=== PATIENT | male | born 1965 | race Caucasian/White ===

== ENCOUNTER 2019-08-21 01:10 | Outpatient (CLI) | payer SELFPAY ==
[2019-08-21 10:56] LABS: CREATININE 1.16 mg/dL (0.70-1.30); Calculated LDL 165 mg/dL (<100); Cholesterol 230 mg/dL (<200); Glucose 139 mg/dL (74-106); HDL Cholesterol 44 mg/dL (40-60); Potassium 4.1 mmol/L (3.5-5.1); Triglyceride 105 mg/dL (<150)
== END 2019-08-21 01:30 ==
PROVIDERS: PCP Family Medicine; Visit Provider Family Medicine
DX: E78.5 Hyperlipidemia, unspecified (principal); I10 Essential (primary) hypertension; R73.9 Hyperglycemia, unspecified
CPT/HCPCS: 36415; 80061; 82947; 82565; 84132

== ENCOUNTER 2019-09-11 01:59 | Outpatient (CLI) | payer SELFPAY ==
[2019-09-11 07:55] LABS: Hemoglobin A1C 6.2 % (3.8-5.6)
== END 2019-09-11 02:19 ==
PROVIDERS: PCP Family Medicine; Visit Provider Family Medicine
DX: R73.9 Hyperglycemia, unspecified (principal)
CPT/HCPCS: 36415; 83036

== ENCOUNTER → 2020-12-06 01:15 | Outpatient (CLI) | payer OTHER, SELFPAY ==
--- NOTE | 2020-12-06 08:15 | DI.RAD_ITS ---
Exam(s) XR HIP RT COMPLETE AP PELVIS EXAM: XR HIP RT COMPLETE AP PELVIS CLINICAL HISTORY: rt hip and groin pain,M25.551. TECHNIQUE: 2D digital imaging was performed of the right hip. Three images were obtained. AP pelvis and lateral right hip views were obtained. COMPARISON: No exams were available for comparison FINDINGS: BONES: No acute fracture is present. No bony destructive lesion is seen. JOINTS: No dislocation present. The right hip joint is well maintained. The sacroiliac joints and sy mphysis pubis are well maintained. There are degenerative changes seen in the lower lumbar spine. SOFT TISSUE: Normal. IMPRESSION: 1. Unremarkable radiographs of the right hip. 2. Degenerative changes seen in the lower lumbar spine. DATA REPOSITORY: RADIATION DOSE DELIVERED:
== END ==
PROVIDERS: PCP Family Medicine; Visit Provider Family Medicine
DX: M25.551 Pain in right hip (principal); M47.816 Spondylosis without myelopathy or radiculopathy, lumbar region
CPT/HCPCS: 73502

== ENCOUNTER 2020-12-14 15:34 | Emergency (ER) | payer OTHER, SELFPAY ==
[2020-12-14] VITALS (24 sets, daily range): BP systolic 122–164; BP diastolic 76–136; PULSE 70–126; RESP 17–35; TEMP 36.8–37.3; O2SAT 90–95
--- NOTE | 2020-12-14 15:30 | RT.EKG_ITS ---
APPROVED REPORT Exam: Resting ECG Reason for Exam: SOB Patient Location: E HR:112 bpm ECG Measurements Heart Rate 112 AXIS MN 127 P 52 QRSd 80 QRS 31 QT 319 T 63 QTc 436 Conclusion Sinus tachycardia...rate> 99. Sinus. No STEMI. I have reviewed and interpreted ECG and agree with software generated interpretation.
[2020-12-14 16:05] LABS: Source Nasal/Nares
[2020-12-14 16:08] LABS: Abs Immature Grans 0.03 10^3/uL (0.0-0.06); Absolute Lymphocyte Count 0.51 10^3/uL (1.2-3.4); Absolute Monocyte Count 0.38 10^3/uL (0.1-0.8); Absolute Neutrophil Count 3.87 10^3/uL (1.2-6.7); HCT 40.9 % (40.0-50.0); Immature Grans % 0.6; Lymphocytes % 10.6; MCH 30.4 pg (27.0-33.0); MCHC 34.2 % (32.0-36.0); MCV 88.9 fL (80-95); MPV 10.8 fL (8.0-11.0); Monocytes % 7.9; Neutrophils % 80.9; Nucleated RBC 0 %; Platelet Count 151 10^3/uL (130-400); RDW-SD 42.5 fL; WBC 4.79 10^3/uL (4.4-10.8)
[2020-12-14 16:37] LABS: ALT 45 U/L (16-63); AST 31 U/L (15-37); Albumin 3.3 g/dL (3.4-5.0); Alkaline Phosphatase 70 U/L (46-116); Anion Gap 10.5 mmol/L (3-11); BUN 21 mg/dL (7-18); Bilirubin, Total 0.6 mg/dL (0.2-1.0); CO2 28.5 mmol/L (21.0-32.0); CREATININE 1.2 mg/dL (0.70-1.30); Calcium 8.6 mg/dL (8.5-10.1); Chloride 98 mmol/L (98-107); Glucose 188 mg/dL (74-106); Magnesium 2.1 mg/dL (1.8-2.4); Potassium 3.7 mmol/L (3.5-5.1); Sodium 137 mmol/L (136-145); Total Protein 8.1 g/dL (6.4-8.2)
[2020-12-14 16:39] LABS: Troponin I < 0.05 ng/mL (<0.06)
--- NOTE | 2020-12-14 16:45 | DI.RAD_ITS ---
Exam(s) XR PORTABLE CHEST AP EXAM: XR PORTABLE CHEST AP CLINICAL HISTORY: covid pneumonia. TECHNIQUE: 2D digital imaging was performed. COMPARISON: CR CHEST 2 VIEWS PA,LAT from 10/18/2012 FINDINGS: Heart size is upper normal. The mediastinum is not widened. Left lung is clear. Mild increased markings in the lower right lung field noted. No pleural effusio ns IMPRESSION: Mild increased markings in the lower right lung field, possibly developing infiltrate. Recommend non portable PA and lateral views when clinically possible. DATA REPOSITORY: RADIATION DOSE DELIVERED: All CT scans at this facility use at least one of these dose optimization techniques: automated exposure control; mA and/or kV adjustment per patient size (includes targeted e xams where dose is matched to clinical indication); or iterative reconstruction.
--- NOTE | 2020-12-14 16:50 | ED.GENADUL_ITS ---
Discharge Plan Disposition Patient Disposition: HOME Condition: Stable Discharge Details Clinical Impression: COVID-19 Primary Care Provider: Rohan Apodaca ED Provider: Leslie Rubio Home Meds and New Rx's Prescriptions: No Action metformin 500 mg tablet 500 mg PO BID Qty: 180 RF: 3 omeprazole 20 MG capsule,delayed release(DR/EC) 1 tab PO DAILY RF: 0 fexofenadine [Michelle Allergy] 180 MG tablet 180 mg PO DAILY RF: 0 lisinopril-hydrochlorothiazide 10-12.5 mg tablet 1 tab PO DAILY Qty: 90 RF: 3 Discharge Instructions Instructions: Viral Syndrome (ED), COVID-19 (Coronavirus Disease 2019) (ED) Additional Instructions: monitor oxygen saturation, report sustained saturations less than 92 % at rest. you have received monoclonal antibody therapy, information packet provided per protocol. Referrals: Rohan Apodaca MD [Primary Care Provider] - Discharge Data Discharge Date/Time-TO BE ENTERED AT DEPARTURE: 12/14/20 21:10 Medical Decision Making non vaccinated, positive for covid, symptomatic with cough, malaise, likely covid pneumonia. he is oxygenating well on room air. routine labs ordered by off going provider. Lab Data Lab results reviewed: Yes I reviewed the patient's lab results. HPI General Information obtained by: patient . HPI Narrative: patient presents with c/o shortness of breath, symptoms started on Saturday, is positive for covid. not vaccinated. Related Data Home Medications Medication Instructions Recorded Confirmed omeprazole 1 tab PO DAILY 03/02/14 12/14/20 fexofenadine [Michelle Allergy] 180 mg PO DAILY tab-cap 10/28/15 12/14/20 lisinopril 10 1 tab PO DAILY #90 tab-cap 03/18/20 12/14/20 mg-hydrochlorothiazide 12.5 mg tablet metformin 500 mg tablet 500 mg PO BID #180 tab 04/29/20 12/14/20 Previous Rx's Medication Instructions Recorded lisinopril 10 1 tab PO DAILY #90 tab-cap 03/18/20 mg-hydrochlorothiazide 12.5 mg tablet metformin 500 mg tablet 500 mg PO BID #180 tab 04/29/20 Allergies Allergy/AdvReac Type Severity Reaction Status Date / Time No Known Allergies Allergy Verified 12/14/20 15:49 General Stated Complaint: GenMedical JAZMINE: 3 Review of Systems Constitutional Constitutional: Reports fever(s), Reports headache(s) and Reports lethargy Eyes Eyes: Denies change in vision ENT Ears, Nose, Mouth, and Throat: Reports headache(s) Cardiovascular Cardiovascular: Denies chest pain and Reports dyspnea Respiratory Respiratory: Reports cough and Reports dyspnea Gastrointestinal Gastrointestinal: Denies nausea and Denies vomiting Neurologic Neurologic: Reports headache(s) PENDING SALE TO [facility] Medical History (Updated 12/14/20 @ 16:55 by Leslie Rubio NP) Overweight Family History Mother No problems noted. Father Heart disease Sister No problems noted. Sister No problems noted. Brother Diabetes Heart disease Daughter No problems noted. Daughter No problems noted. Social History Smoking/Tobacco Use Status: Former Tobacco Use Smoking risk assessment performed?: Yes Alcohol Intake: current Alcohol Intake frequency: a few times a month Alcohol type: beer Drug use: Never Substance use type: does not use Do you feel safe at home: Yes Do you feel safe in your relationship?: Yes Exam Const General: cooperative, comfortable and no acute distress (older appearing than stated age) Nutritional Appearance: overweight Orientation: alert, awake and oriented x3 HENOH Head: normal to inspection, normocephalic and atraumatic Resp Effort & Inspection: normal respiratory effort and able to speak in complete sentences Cardio Rate: regular rate and tachycardic Rhythm: regular rhythm GI Inspection: normal to inspection Palpation: soft Auscultation: normal bowel sounds Skin General skin exam: no rashes or lesions noted Neuro General: patient alert, patient awake, patient oriented x3 and no focal motor deficits Extrem General: normal to inspection and full ROM Course Vital Signs Vital signs: Vital Signs Temperature 37.3 C 12/14/20 15:43 Pulse 126 H 12/14/20 15:43 Respiratory Rate 20 12/14/20 15:43 Blood Pressure 122/92 H 12/14/20 15:43 Pulse Oximetry 95 12/14/20 15:43 Temperature 37.3 C 12/14/20 15:43 Temperature Source Oral 12/14/20 15:43 Pulse 126 H 12/14/20 15:43 Respiratory Rate 20 12/14/20 15:43 Respiratory Effort Non-Labored 12/14/20 15:46 Blood Pressure 122/92 H 12/14/20 15:43 Blood Pressure Position Sitting 12/14/20 15:43 Pulse Oximetry 95 10/27/21 15:43 Oxygen Delivery Method Room Air 12/14/20 15:43 Oxygen Flow Rate 0 12/14/20 15:43 Pain Level 8 12/14/20 15:43 Lab/Test Results Lab/Test Results: 12/14/20 16:20 Blood Blood Culture - Pending 12/14/20 15:55 Blood Blood Culture - Pending Laboratory Tests Range/Units 12/14/20 12/14/20 12/14/20 15:55 15:55 15:55 WBC (4.4-10.8) 10^3/uL 4.79 RBC (4.36-5.78) 10^6/uL 4.60 Hgb (13.5-17.5) g/dL 14.0 Hct (40.0-50.0) % 40.9 MCV (80-95) fL 88.9 MCH (27.0-33.0) pg 30.4 MCHC (32.0-36.0) % 34.2 RDW (11.8-14.1) % 13.0 Plt Count (130-400) 10^3/uL 151 MPV (8.0-11.0) fL 10.8 Immature Gran % 0.6 Neutrophils % 80.9 Lymphocytes % 10.6 Monocytes % 7.9 Eosinophils % 0.0 Basophils % 0.0 Nucleated RBC % % 0 Absolute Neutrophils (1.2-6.7) 10^3/uL 3.87 Absolute Lymphocytes (1.2-3.4) 10^3/uL 0.51 L Absolute Monocytes (0.1-0.8) 10^3/uL 0.38 Absolute Eosinophils (0.0-0.7) 10^3/uL 0.00 Absolute Basophils (0.0-0.2) 10^3/uL 0.00 Sodium (136-145) mmol/L 137 Potassium (3.5-5.1) mmol/L 3.7 Chloride (98-107) mmol/L 98 Carbon Dioxide (21.0-32.0) mmol/L 28.5 Anion Gap (3-11) mmol/L 10.5 BUN (7-18) mg/dL 21 H Creatinine (0.70-1.30) mg/dL 1.2 Estimated GFR/1.73 m2 (mL/min/1.73m2) >= 60.00 Glucose (74-106) mg/dL 188 H Calcium (8.5-10.1) mg/dL 8.6 Magnesium (1.8-2.4) mg/dL 2.1 Total Bilirubin (0.2-1.0) mg/dL 0.6 AST (15-37) U/L 31 ALT (16-63) U/L 45 Alkaline Phosphatase (46-116) U/L 70 Troponin I (<0.06) ng/mL < 0.05 Total Protein (6.4-8.2) g/dL 8.1 Albumin (3.4-5.0) g/dL 3.3 L COVID-19 Source Nasal/Nares PAWSS Have you Been Recently Intoxicated or Drunk Within the Last 30 days?: No Have you Ever Experienced Previous Episodes of Alcohol Withdrawal?: No Have you ever Experienced Withdrawal Seizures?: No Have you ever Experienced Delirium Tremens(DT)s?: No Have you ever undergone Alcohol Rehabilitation Treatment (i.e, inpt ot outpatient treatment programs)?: No Have you ever Experienced Blackouts?: No Have you ever Combined Alcohol with other Downers within the last 90 days?: No Have you ever Combined Alcohol with any other Substance of Abuse during the last 90 days?: No Positive Blood Alcohol level on Presentation? [PCS.BAL]: No Evidence of Increased Autonomic Activity (i.e. HR>120, tremor, sweating, agitation, nausea)?: No Result: 0
[2020-12-14 16:54] LABS: COVID-19 PCR POSITIVE (Negative)
[2020-12-14 16:55] LABS: D-Dimer 532 ng/mlFEU (<500)
--- NOTE | 2020-12-14 18:23 | DI.VRAD_ITS ---
PROCEDURE INFORMATION: Exam: XR Chest Exam date and time: 12/14/2020 4:58 PM Age: 55 years old Clinical indication: Shortness of breath; Patient HX: Covid pnuemonia TECHNIQUE: Imaging protocol: XR of the chest. Views: 1 view. COMPARISON: No relevant prior studies available. FINDINGS: Lungs: Unremarkable. No consolidation. Pleural spaces: Unremarkable. No pleural effusion. No pneumothorax. Heart/Mediastinum: Unremarkable. No cardiomegaly. Bones/joints: Unremarkable. IMPRESSION: No acute findings. Dictated and Authenticated by: Antonia Oakes MD. Ordering:ROXY Nleson MD
--- NOTE | 2020-12-14 19:30 | NUR.NOTE ---
Nursing Note: Pt care transferred to receiving night RN (Mauro at this time).
[2020-12-14 19:48] LABS: Troponin I < 0.05 ng/mL (<0.06)
== END 2020-12-14 21:10 | disposition home or self-care (01) ==
PROVIDERS: Registered Nurse Emergency; Emergency Provider Nurse Practitioner Acute Care; PCP Family Medicine
DX: U07.1 COVID-19 (principal); R05.1 Acute cough; R53.81 Other malaise; R06.02 Shortness of breath; Z20.822 Contact with and (suspected) exposure to COVID-19
CPT/HCPCS: 36415; 80053; 87040; 87635; 93005; 96365; 99285; 71045; 83735; 84484; 85025; 85379; 93010

== ENCOUNTER 2021-01-17 15:59 | Outpatient (CLI) | payer OTHER, SELFPAY ==
--- NOTE | 2021-01-17 15:45 | RT.EKG_ITS ---
APPROVED REPORT Exam: Resting ECG Reason for Exam: Chest discomfort Patient Location: O HR:89 bpm ECG Measurements Heart Rate 89 AXIS DE 140 P 57 QRSd 80 QRS 29 QT 370 T 75 QTc 450 Conclusion Sinus rhythm...normal P axis, V-rate 60- 99 Probable left atrial enlargement...P >50mS, <-0.10mV V1
== END 2021-01-17 16:00 | disposition home or self-care (01) ==
LOC: DI.CM 16:00
PROVIDERS: PCP Family Medicine; Visit Provider Family Medicine
DX: R07.89 Other chest pain (principal)
CPT/HCPCS: 93010

== ENCOUNTER 2021-04-07 00:17 | Outpatient (CLI) | payer OTHER, SELFPAY ==
--- NOTE | 2021-04-07 07:30 | DI.CT_ITS ---
Exam(s) CT CHEST WO EXAM: CT CHEST WO CLINICAL HISTORY: Abnormal CXR, post COVID, ? possible fibrosis,U07.1. TECHNIQUE: Imaging protocol: Axial computed tomography images were obtained and coronal and sagittal reformatted images were created and reviewed. COMPARISON: CR,XR XR PORTABLE CHEST AP from 12/14/2020 FINDINGS: Tracheobronchial tree: Patent where visualized. Pulmonary parenchyma: No focal consolidation. There are peripheral ground-glass opacities in the karen gs. No architectural distortion. Mediastinum and Jeanna: No dominant adenopathy or fluid collection. The esophagus is unremarkable. Thyroid gland: Unremarkable. Pleura: No effusion or pneumothorax. Heart: The heart is not dilated. Coronary artery calcifications are present. No pericardial effusion . Aorta: Thoracic aorta non-dilated. Atherosclerosis. Upper abdomen: Unremarkable. Lymph nodes: Within normal limits. Soft tissues: Unremarkable. Bones:Within normal limits for the patient's age. IMPRESSION: Nonspecific ground-glass opacities in the lungs. In the appropriate clinical setting, this may repre sent COVID-19 infection. Differential considerations include interstitial pneumonia, hypersensitivit y pneumonitis, sarcoidosis, chronic eosinophilic pneumonia, organizing pneumonia among other etiologi es. Please correlate clinically. RADIATION DOSE DELIVERED: 883.43mGy.cm Total DLP 883.43mGy.cm Total DLP DATA REPOSITORY: All CT scans at this facility are submitted to the National Radiology Data Registry (NRDR) Dose Index Registry (DIR) with the [employer] (ACR). RADIATION OPTIMIZATION: All CT scans at this facility use at least one of these dose optimization te chniques: automated exposure control; mA and/or kV adjustment per patient size (includes targeted exa ms where dose is matched to clinical indication); or iterative reconstruction.
== END 2021-04-07 00:37 ==
PROVIDERS: PCP Family Medicine; Visit Provider Student in an Organized Health Care Education/Training Program
DX: U07.1 COVID-19 (principal); R91.8 Other nonspecific abnormal finding of lung field
CPT/HCPCS: 71250

== ENCOUNTER 2021-04-13 02:50 | Outpatient (CLI) | payer OTHER, SELFPAY ==
[2021-04-13] MEDS: Methacholine 100 MG VIAL IH (16:48)
[2021-04-13] MEDS: Albuterol HFA 18 GM 200 PUFF INH IH (16:49)
[2021-04-13] MEDS: Inhaler, Assist Device 1 EACH MC (16:50)
== END 2021-04-13 02:51 | disposition home or self-care (01) ==
PROVIDERS: PCP Family Medicine; Visit Provider Student in an Organized Health Care Education/Training Program
DX: R07.9 Chest pain, unspecified (principal); R06.09 Other forms of dyspnea; U09.9 Post COVID-19 condition, unspecified; Z87.891 Personal history of nicotine dependence; K21.9 Gastro-esophageal reflux disease without esophagitis
CPT/HCPCS: 94060; 94070; 94726; 94729; 94010; J7674

== ENCOUNTER 2021-07-10 01:49 | Outpatient (CLI) | payer OTHER, SELFPAY ==
--- NOTE | 2021-07-10 07:15 | DI.NM_ITS ---
APPROVED REPORT Exam: Exercise Treadmill Patient Location: Out-Patient Room/Bed: Stress Nurse: Chelly Saavedra RN Ordering Provider:NELSON PARKER, Contact Number: [phone] BMI: 30.84 Baseline Rhythm: Sinus Rhythm Indications: Chest pain Medical History Medical History: Hypertension, hyperlipidemia, prediabetes, family hx, gerd Cardiac Medications: Lisinopril-HCTZ, sucralfate, prednisone, metformin Allergies: NKDA Cardiac Risk Factors: Hypertension, hyperlipidemia, diabetes, familiy hx Previous Cardiac Procedures: None Pretest Chest Pain Characteristics: None Exercise History: Sedentary Physical Disabilities: None Lung Sounds: Clear to auscultation Heart Sounds: Regular Stress Test Details Test: Exercise stress testing was performed using a Bernardo protocol. Nuclear Acquisition: Rest Tc-99m/Stress Tc-99m 1 day Rest Isotope: Tc-99m Sestamibi. Dose: 11.5 Date: 07/13/2021 Injection Time: 0845 Stress Isotope: Tc-99m Sestamibi. Dose: 37.0 Date: 07/13/2021 Injection Time: 1017 HR Resting HR Supine: 61 bpm Max Heart Rate (APMHR): 162.252677 bpm Resting HR Standin bpm Target HR (85% APMHR): 137.885050 bpm Max HR Achieved: 146 bpm % of APMHR: 90.12 Recovery HR: 81 bpm HR response to stress: Normal HR response to stress BP Resting BP Supine: 118/70 mmHg Resting BP Standin/74 mmHg Max BP: 198/80 mmHg Recovery BP: 121/74 mmHg BP response to stress: Normal blood pressure response to stress. ECG Resting ECG: Sinus Rhythm Ectopy: None Stress ECG: Sinus Rhythm, Sinus Tachycardia ST Change: Horizontal ST depression Lead(s): anterior, inferior, lateral Maximum ST Deviation: 2 mm Arrhythmia: Rare PVC Recovery ECG: Sinus Rhythm Recovery ST Change: Horizontal ST depression Lead(s): anterior, inferior, lateral Recovery ST Deviation: 3-4 mm Recovery Arrhythmia: Rare PVC Comment: ST depressions resolved after 8 minutes in recovery Clinical Reason for Termination: Chest pain/Anginal equivalent Stress Symptoms: Chest pain, General Fatigue Exercise duration: 6 min34 sec Highest Stage Reached: Stage 3: 3.4 mph at 14% grade. Exercise capacity: 7.92 METs Angina Score: Exercise-Limiting Pastor Treadmill Score: -12.0 Rate Pressure Product: [id number] Stress ECG Conclusion 1. Resting electrocardiogram was within normal limits 2. Patient exercised on the Bernardo protocol and completed a workload of 7.92 METS, limited by chest pa in 3. Normal heart rate and blood pressure response to exercise. The patient achieved 90% of predicted heart rate for age 4. Electrocardiographic portion of the test was consistent with myocardial ischemia with approximatel y 3 mm of inferior and lateral ST depression at peak exercise 5. See MPI report Pastor Treadmill Score is -12.0 which is High risk. Stress Test Summary STAGE Time (mins) Speed (mph) Grade (%) HR BP SYMPTOMS METS Supine 61 118/70 Standing 72 110/74 SpO2 98% 1 3 1.7 10 124 142/80 Chest pain 6/10, SpO2 98% 4.6 2 6 2.5 12 136 162/82 Chest pain 9/10, SpO2 98% 7 1 min recovery 121 198/80 Chest pain 9/10, SpO2 98% 3 min recovery 87 164/78 Chest pain 2/10, SpO2 98% 6 min recovery 81 124/74 Chest pain resolved, SpO2 98% MPI Conclusion There was evidence of myocardial ischemia involving the inferior, posterior lateral and apical segmen ts. There was no infarction. EF was 57% with inferior and lateral wall motion abnormalities Radiologist Interpretation Radiologist agrees with Vice President Of Brand Management's Interpretation. Radiologist Interpretation by: Michele Hogan MD Interpretation Date/Time: 07/18/2021 17:18:58
== END 2021-07-10 02:09 ==
LOC: DI 01:49
PROVIDERS: PCP Family Medicine; Visit Provider Family Medicine
DX: R07.89 Other chest pain (principal)
CPT/HCPCS: 78452; 93017

== ENCOUNTER 2021-08-01 15:05 | Outpatient (REF) | payer OTHER, SELFPAY ==
[2021-08-01 20:26] LABS: Source Nasal/Nares
[2021-08-01 22:35] LABS: COVID-19 PCR Negative (Negative)
== END 2021-08-01 15:06 | disposition home or self-care (01) ==
LOC: LBN 15:05
PROVIDERS: PCP Family Medicine; Visit Provider Family Medicine
DX: Z20.822 Contact with and (suspected) exposure to COVID-19 (principal); Z01.818 Encounter for other preprocedural examination
CPT/HCPCS: 87635

== ENCOUNTER 2022-06-20 02:37 | Outpatient (CLI) | payer OTHER, SELFPAY ==
[2022-06-20 17:20] LABS: BUN 21 mg/dL (7-18); CREATININE 1.1 mg/dL (0.70-1.30); Calcium 9.4 mg/dL (8.5-10.1); Chloride 107 mmol/L (98-107); Estimated GFR 77.33 (mL/min/1.73m2); Glucose 137 mg/dL (74-106); Potassium 3.9 mmol/L (3.5-5.1); Sodium 143 mmol/L (136-145)
[2022-06-21 21:28] LABS: PSA, Screening 1.5 ng/mL (<=3.5)
== END 2022-06-20 02:38 | disposition home or self-care (01) ==
LOC: LBO 02:37
PROVIDERS: PCP Family Medicine; Visit Provider Family Medicine
DX: Z12.5 Encounter for screening for malignant neoplasm of prostate (principal); E87.1 Hypo-osmolality and hyponatremia
CPT/HCPCS: 36415; 80048; 84153

== ENCOUNTER 2022-07-12 11:44 | Outpatient (CLI) | payer OTHER, SELFPAY ==
--- NOTE | 2022-07-12 07:45 | DI.RAD_ITS ---
Exam(s) XR KNEE RT 3V AP,LAT,FABIAN EXAM: XR KNEE RT 3V AP,LAT,FABIAN CLINICAL HISTORY: right knee pain. TECHNIQUE: 2D digital imaging was performed of the right knee. Three views obtained. AP, lateral an d PA tunnel views were obtained. COMPARISON: None. FINDINGS: BONES: No acute fracture is present. No bony destructive lesion is seen. There is an enthesophyte at the superior patella. JOINTS: The knee is normally aligned. There is a moderate joint effusion. There is mild narrowing of the medial femoral tibial joint space. Mild spurring is seen at the posterior patella. SOFT TISSUE: Normal. IMPRESSION: Mild degenerative changes of the right knee. Moderate joint effusion. DATA REPOSITORY: RADIATION DOSE DELIVERED:
--- NOTE | 2022-07-12 08:00 | DI.RAD_ITS ---
Exam(s) XR KNEE LT 4V AP,LAT,FABIAN,PAT EXAM: XR KNEE LT 4V AP,LAT,FABIAN,PAT CLINICAL HISTORY: eval L knee pain. TECHNIQUE: 2D digital imaging was performed of the left knee. Four images were obtained. Merchant, AP, lateral and PA tunnel views were obtained. COMPARISON: There are no priors for comparison. FINDINGS: BONES: No acute fracture is present. No bony destructive lesion is seen. There is an enthesophyte at the superior patella. JOINTS: The knee is normally aligned. There is mild narrowing of the medial femoral tibial joint. Pe riarticular spurring seen at the posterior patella. SOFT TISSUE: Normal. IMPRESSION: Mild degenerative changes of the left knee. DATA REPOSITORY: RADIATION DOSE DELIVERED:
== END 2022-07-12 11:45 | disposition home or self-care (01) ==
LOC: DIORS 11:44
PROVIDERS: PCP Family Medicine; Referring Provider Family Medicine; Visit Provider Student in an Organized Health Care Education/Training Program
DX: M17.0 Bilateral primary osteoarthritis of knee; M25.461 Effusion, right knee
CPT/HCPCS: 73562; 73564

== ENCOUNTER 2022-09-19 00:49 | Outpatient (CLI) | payer OTHER, SELFPAY ==
--- NOTE | 2022-09-19 15:20 | DI.MRI_ITS ---
Exam(s) MR LOWER JOINT RT WO EXAM: MR LOWER JOINT RT WO CLINICAL HISTORY: pain, INTERNAL DERANGEMENT RT KNEE, M23.91 TECHNIQUE: Multiplanar multisequence MRI of the knee was performed. COMPARISON: CR XR KNEE LT 4V AP,LAT,FABIAN,PAT from 07/12/2022 CR XR KNEE RT 3V AP,LAT,FABIAN from 07/12/2022 FINDINGS: EFFUSION: There is a prominent knee joint effusion. There is tiny Ro cyst in the popliteal fossa. MARROW:There is prominent bone contusion signal in the subarticular medial femoral condyle and subjac ent medial tibial plateau. No ominous osseous lesions. PATELLOFEMORAL COMPARTMENT: Is mild tendinitis signal in the distal quadriceps tendon. No high-grade tear of this structure. There is no significant prominent thinning of the retropatellar cartilage. No deep fissures. No ost eochondral defects at this level nor subarticular signal abnormality in the posterior patella.There i s no intraosseous signal to suggest recent patellar dislocation. There are no patellar retinacular te ars. CRUCIATE LIGAMENTS: The anterior cruciate ligament is intact.The posterior cruciate ligament is intac t. MEDIAL COMPARTMENT/MEDIAL MENISCUS: There is tear of the root at posterior horn medial meniscus. The re is no tear of the outer 3rd of the posterior horn nor of the anterior horn. Mild lateral meniscal extrusion but no gutter descent meniscal material evident. There is prominent full-thickness loss of articular cartilage over the main weight-bearing surface of the medial femoral condyle with abundant subarticular bone edema in the medial condyle at this level . More anteriorly there is a smaller focus of surface cartilage loss with focal subarticular edema. There is also intraosseous edema in the medial tibial plateau. There are no marginal medial compart ment osteophytes. MEDIAL COLLATERAL LIGAMENT: There is thin fluid signal interposed between the deep and superficial la yers of the medial collateral ligament. There is, however, no full-thickness tear of this structure. LATERAL COMPARTMENT/LATERAL MENISCUS: There is no evidence of lateral meniscal tear.There is no signi ficant cartilage loss over the articular surface of the lateral femoral condyle. There is no subarti cular intraosseous edemain the lateral femoral condyle nor within the lateral tibial plateau. ILIOTIBIAL BAND: Intact LATERAL COLLATERAL LIGAMENT COMPLEX: The fibular collateral ligament is intact. The biceps femoris t endon is intact.Popliteus muscle and tendon are intact. IMPRESSION: 1. There is significant tearing at the level of the root of the posterior horn of the medial meniscus . Anterior horn appears intact. There is advanced full-thickness cartilage thinning over the main w eight-bearing surface of the medial femoral condyle with abundant subarticular intraosseous edema in the medial condyle as well as some intraosseous edema in the subjacent medial tibial plateau. 2. There is fluid signal interposed between the deep and superficial layers of the medial collateral ligament consistent with element of sprain but there is no full-thickness tear of the MCL and the med ial patellar retinaculum is also intact. 3. Anterior and posterior cruciate ligaments are intact, as is the lateral collateral ligament comple x and iliotibial band. 4. Mild tendinitis in the distal quadriceps tendon. No high-grade tear of this structure. There is subcutaneous edema anterior to the patellar ligament but no significant tear of this structure. 5. There is a prominent knee joint effusion. There is a tiny Ro's cyst in the popliteal fossa. There are no loose intra-articular bodies evident. DATA REPOSITORY:
== END 2022-09-19 01:09 ==
LOC: DI 00:49
PROVIDERS: PCP Family Medicine; Visit Provider Student in an Organized Health Care Education/Training Program
DX: M23.229 Derangement of posterior horn of medial meniscus due to old tear or injury, unspecified knee (principal); M25.461 Effusion, right knee
CPT/HCPCS: 73721

== ENCOUNTER 2023-04-09 14:12 | Outpatient (REF) | payer BC, SELFPAY ==
[2023-04-09 21:14] LABS: COMMENT (LAB VIEW ONLY) 51.06 mg/dL; Microalb ug/mg Crea 7.4 ug/mg Cr
== END 2023-04-09 14:13 | disposition home or self-care (01) ==
LOC: LBN 14:12
PROVIDERS: PCP Family Medicine; Visit Provider Family Medicine
DX: E11.9 Type 2 diabetes mellitus without complications (principal)
CPT/HCPCS: 82043; 82570

== ENCOUNTER → 2023-08-02 00:30 | Outpatient (CLI) | payer OTHER, SELFPAY ==
--- NOTE | 2023-08-02 07:13 | DI.CT_ITS ---
Exam(s) CT ABDOMEN PELVIS W EXAM: CT ABDOMEN PELVIS W CLINICAL HISTORY: periumbilical pain for a few months,R10.33. TECHNIQUE: Imaging Protocol: Axial computed tomography images with coronal and sagittal reformatted images were created and reviewed CONTRAST MATERIAL: Intravenous: Omnipaque-350 100cc Oral: Yes. Oral contrast was also administered for bowel opacification. COMPARISON: CT,NM NM MPI REST STRESS GRP from 07/10/2021 FINDINGS: VISUALIZED LUNG BASES: No nodules nor pleural effusions evident. ABDOMEN: There is no ascites. LIVER: There are no focal hepatic lesions evident. No dilated intrahepatic ducts. GALLBLADDER/BILIARY: No obvious gallbladder pathology. CBD is not dilated. PANCREAS: No evidence of pancreatic mass nor dilatation of the pancreatic duct. SPLEEN: Spleen is not enlarged. No obvious intrasplenic lesions. Splenic and portal veins are paten t. ADRENALS: There are no significant adrenal masses. KIDNEYS:No cysts evident. No solid renal masses. No calculi nor hydronephrosis.. ABDOMINAL AORTA: Abdominal aorta is not enlarged. LYMPH NODES:There is no retroperitoneal nor paraaortic adenopathy. ABDOMINAL WALL: There is a fat only containing right inguinal hernia. GI: There is no evidence of bowel obstruction, free air, nor abscess. PELVIS: GI: No evidence of appendicitis.No evidence of sigmoid diverticulitis. LYMPH NODES: There is no intrapelvic nor inguinal adenopathy. REPRODUCTIVE: Prostate size normal. Seminal vesicles unremarkable. URINARY BLADDER: No calculi nor obvious masses evident OSSEOUS: No fractures and no significant osseous lesions. Chronic disc space narrowing L5-S1 noted. No listhesis. IMPRESSION: 1. There is a small fat only containing right inguinal hernia. No bowel loops therein. No evidence of bowel obstruction. 2. No acute findings in the abdomen and pelvis. RADIATION DOSE DELIVERED: Total DLP DATA REPOSITORY: All CT scans at this facility are submitted to the National Radiology Data Registry (NRDR) Dose Index Registry (DIR) with the [employer] (ACR). RADIATION OPTIMIZATION: All CT scans at this facility use at least one of these dose optimization te chniques: automated exposure control; mA and/or kV adjustment per patient size (includes targeted exa ms where dose is matched to clinical indication); or iterative reconstruction.
[2023-08-02] MEDS: Barium Sulfate 2% W/V-Berry Smoothie 450 ML BTL PO ×2 (08:03→08:04)
[2023-08-02 08:53] LABS: CREATININE 1.1 mg/dL (0.70-1.30); Calculated LDL 127 mg/dL (<100); Cholesterol 211 mg/dL (<200); Estimated GFR 76.85 (mL/min/1.73m2); HDL Cholesterol 50 mg/dL (40-60); Triglyceride 171 mg/dL (<150)
[2023-08-02 09:32] LABS: Hemoglobin A1C 6.8 % (<5.7)
[2023-08-02] MEDS: Omnipaque 350 MG/ML 500 ML BTL-Imaging package IJ (10:23)
== END ==
PROVIDERS: PCP Family Medicine; Visit Provider Family Medicine
DX: E78.5 Hyperlipidemia, unspecified (principal); R10.33 Periumbilical pain; E11.51 Type 2 diabetes mellitus with diabetic peripheral angiopathy without gangrene
CPT/HCPCS: 80061; 74177; 82565; 83036